=== PATIENT | female | born 1960 | race Caucasian/White ===

== ENCOUNTER 2018-11-07 12:52 | Emergency (ER) | payer BC ==
--- NOTE | 2018-11-07 13:24 | UC ---
Syncope/New Syncope HPI - HPI Summary HPI Summary: patient has had multiple episodes of vomiting and diarrhea, today she was in the bathroom and after having idarrhea felt syncopal and thinks she passed out, does not know if she lost consciousness, did not end up on the floor. is also having flank pain. - History Of Current Complaint Stated Complaint: FAINTING SPELLS YESTERDAY,VOMITING,DIARRHEA Time Seen by Provider: 11/07/18 13:10 Hx Obtained From: Patient ?: No Onset/Duration: Sudden Onset, Lasting Days Activity At Onset: Exertion Frequency: Episodes x___ - 1 Context: Unwitnessed Associated Head Trauma: No Associated Signs And Symptoms: Positive: Diarrhea, Vomiting, Weakness - Allergies/Home Medications Allergies/Adverse Reactions: Allergies Allergy/AdvReac Type Severity Reaction Status Date / Time No Known Allergies Allergy Verified 11/07/18 13:06 Home Medications: Home Medications Cholecalciferol TAB* [Vitamin D TAB*] 2,000 units PO DAILY 11/07/18 [History Confirmed 11/07/18] Cyanocobalamin TAB* [Vitamin B12 TAB*] 500 mcg PO DAILY 11/07/18 [History Confirmed 11/07/18] Fluticasone-Salmeterol 500-50* [Advair Diskus 500-50*] 2 puff INH BID 11/07/18 [ History Confirmed 11/07/18] Ipratropium HFA INHALER(NF) [Atrovent Hfa Inhaler(NF)] 2 puff INH BID 11/07/18 [ History Confirmed 11/07/18] Semprex-D 1 tab PO BID 11/07/18 [History] Simvastatin TAB(NF) [Zocor(NF)] 10 mg PO DAILY 11/07/18 [History Confirmed 11/07] Ubidecarenone [Coq-10 Tr] 100 mg PO DAILY 11/07/18 [History Confirmed 11/07/18] PMH/Surg Hx/FS Hx/Imm Hx Previously Healthy: Yes - Family History Known Family History: Positive: Hypertension Review of Systems All Other Systems Reviewed And Are Negative: Yes Gastrointestinal: Positive: Vomiting, Diarrhea, Nausea Genitourinary: Positive: Other - flank pain Physical Exam Triage Information Reviewed: Yes Appearance: Well-Nourished, Ill-Appearing, Pain Distress Vital Signs Reviewed: Yes Eye Exam: Normal ENT Exam: Normal Dental Exam: Normal Neck exam: Normal Respiratory Exam: Normal Re-Evaluation - Re-Evaluation First Eval Change: Improved - staring to feel alittle better, half of the IV fluids are in. Syncope Course/Dx - Course Course Of Treatment: hx obtainex, exam performed ,meds reviewed, EKG was normal sinus, UA sholwed she was very dehydrated, IV fluids given and IV zofran. Improved and sent home with prescription for zofran. - Differential Dx/Diagnosis Provider Diagnosis: Dehydration symptoms, Syncope Discharge - Sign-Out/Discharge Documenting (check all that apply): Patient Departure All imaging exams completed and their final reports reviewed: No Studies - Discharge Plan Condition: Stable Disposition: HOME Prescriptions: Ondansetron ODT TAB* [Zofran 4 MG Odt TAB*] 4 mg PO Q6H PRN #15 tab.odt PRN Reason: Nausea Patient Education Materials: Dehydration (ED), Acute Nausea and Vomiting (ED) Referrals: Non Staff,Doctor [Primary Care Provider] - Additional Instructions: 1. Increase fluid intake as tolerated 2. Use the zofran as needed for nasuea 3. BRAT diet: banans, rice, applesauce, toast 4. Follow up if unable to keep food or fluids down, or more episodes of fainting occur. - Billing Disposition and Condition Condition: STABLE Disposition: Home - Attestation Statements Provider Attestation: This patient was not seen by me. I was available for consult. SHIRA
[2018-11-07] MEDS ORDERED: NS 0.9% 1000 ML** 1,000 ML IV ONE (13:39)
[2018-11-07] MEDS ORDERED: Ondansetron INJ* 2 MG/ML VIAL IV ONE (13:40)
[2018-11-07] MEDS ORDERED: Acetaminophen TAB* 325 MG PO ONE (14:51)
[2018-11-07 15:11] VITALS: BP 119/65
== END 2018-11-07 15:28 | disposition home or self-care (01) ==
LOC: UCCORT 12:52
DX: E86.0 Dehydration (principal); R55 Syncope and collapse
CPT/HCPCS: 81003; 93005; 96361; 96374; 99202; A9270-GY; G0463; J2405